=== PATIENT | male | born 1955 | race Caucasian/White ===

== ENCOUNTER 2020-02-13 23:36 | Emergency (ER) | payer OTHER, MEDICARE, SELFPAY ==
[2020-02-13 23:48] VITALS: BP 104/41; BP 130/70; PULSE 81; PULSE 88; RESP 22; TEMP 37.1; O2SAT 100; O2SAT 98; BMI 23.6
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
[2020-02-14] VITALS (7 sets, daily range): BP systolic 89–95; BP diastolic 42–60; PULSE 69–77; RESP 16; TEMP 36.6–37; O2SAT 97–100
[2020-02-14] MEDS: 0.9 % Sodium Chloride 1,000 ML 999 ML IV (00:30)
[2020-02-14 00:36] LABS: Basophils Percent Auto 0.5 % (0-2); Eosinophils Absolute Auto 0.1 X10*3/uL (0.0-0.4); Eosinophils Percent Auto 0.8 % (0-4); Hematocrit 34.6 % (42-52); Hemoglobin 11.6 g/dl (14.0-18.0); Imm Gran Abs Auto 0.02 X10*3/uL (0.00-0.03); Imm Gran Pct Auto 0.3 % (0.0-0.4); Lymphocytes Percent Auto 14.1 % (20-40); MANUAL DIFF FLAG NO; Mean Corpuscular HGB Conc 33.5 g/dl (31.0-36.0); Mean Corpuscular Hemoglobin 30.8 pg (27.0-33.0); Mean Corpuscular Volume 91.8 fL (80-98); Mean Platelet Volume 9.5 fL (9.4-12.4); Monocytes Absolute Auto 0.6 X10*3/uL (0.1-1.2); Monocytes Percent Auto 7.4 % (2-11); Neutrophils Absolute Auto 5.7 X10*3/uL (2.0-8.3); Neutrophils Percent Auto 76.9 % (45-73); Platelet Count 239 X10*3/uL (160-400); Red Blood Count 3.77 X10*6/uL (4.60-5.80); White Blood Count 7.4 X10*3/uL (4.8-10.8)
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
[2020-02-14 01:12] LABS: Alanine Aminotransferase 21 U/L (0-40); Albumin Level 4.1 g/dL (3.5-5.0); Alkaline Phosphatase 104 U/L (39-117); Anion Gap 13 (12-20); Aspartate Amino Transferase 27 U/L (5-37); Bilirubin Direct 0.2 mg/dL (0.0-0.5); Bilirubin Total 0.4 mg/dL (0.0-1.0); Blood Urea Nitrogen 26 mg/dL (9-16); Calcium 8.4 mg/dL (8.4-10.2); Carbon Dioxide 25 mmol/L (22-29); Chloride 104 mmol/L (96-108); Creatinine Clr Calc Pharmacy 64.5; Estimated Glomerular Filt Rate > 60; Glucose Random 108 mg/dL (60-115); Lipase 18 U/L (8-78); Magnesium 2.2 mg/dL (1.6-2.6); Potassium 4.4 mmol/l (3.3-5.1); Sodium 138 mmol/L (135-145); Total Protein 6.3 g/dL (6.5-8.0)
[2020-02-14 01:15] LABS: Troponin-I High Sensitivity 5.5 ng/L (<3.5-35.0)
--- NOTE | 2020-02-14 02:28 | PC.NURSE ---
Healthcare proxy and Stephy bradley, updated via phone for plan of case management and pt in am. please see previous note and paper/photographic documentation in chart for further information.
--- NOTE | 2020-02-14 03:03 | PC.NURSE ---
bruises and scratches as listed below : R upper arm :18cm x 8cm x<0.1cm left lumber:8.5cm x 4.5cm x<0.1cm left lateral lower le.2 cm x 8cm x<0.1cm left lateral thigh 10.7cm x 7.8cm x <0.1cm left posterior rib 12.2cm x 3cm x<0.1cm left lateral upper arm 20cm x 7cm x<0.1cm moisture wounds r buttock and thigh 33.4 cm x 30cm x <0.1 cm left buttock, thigh and sacrum 52.2 cm x 30 cm x<0.1cm scratches noted on r shoulder. all areas listed above are documented in photographic impaired skin documentation that is located in pt paper chart. pt gave verbal permission for photgraphs.
[2020-02-14 05:34] LABS: Glucose Urine UA NEG (NEG); Leukocyte Esterase Urine NEG (NEG); Nitrite Urine NEG (NEG); PH 6.5 (5.0-8.0); Urine Blood NEG (NEG); Urine Ketones 5 MG/DL (NEG); Urine Protein NEG (NEG-TRACE)
[2020-02-14 05:36] LABS: Appearance Urine CLEAR; Color Urine STRAW
--- NOTE | 2020-02-14 06:13 | PC.NURSE ---
Updated family member, Stephy, niece. Stephy provided the meds the pt is on at this time. Med rec updated. Pt awaiting for bed assignment.
--- NOTE | 2020-02-14 07:05 | PC.NURSE ---
RECEIVED REPORT FROM SHAYLA BALTAZAR
--- NOTE | 2020-02-14 07:26 | PC.NURSE ---
PT SET UP WITH BREAKFAST TRY, PT IS CURRENTLY EATING BREAKFAST
--- NOTE | 2020-02-14 08:10 | PC.NURSE ---
PT ATE 100% OF HIS BREAKFAST, BP OBTAINED MANUALLY LOW 91/50.
--- NOTE | 2020-02-14 10:23 | PC.NURSE ---
PT RESTING IN THE STRETCHER WATCHING TV, VS STABLE. PT INCONTINENT OF URIN, PT CLEANED UP AND BARRIER CREAM APPLIED TO COCCYX AREA, VERY RED AND IRROTED IN APPEARANCE
--- NOTE | 2020-02-14 13:12 | PC.NURSE ---
PHYSICAL THERAPY AT BEDSIDE
--- NOTE | 2020-02-14 14:13 | MHC.CM.ED ---
Patient is agreeable to a referral to [facility]; now placed. case management following.
--- NOTE | 2020-02-14 14:15 | PC.NURSE ---
DETECTIVES AT BEDSIDE SPEAKING TO PT
--- NOTE | 2020-02-14 14:33 | PC.NURSE ---
PT SET UP WITH LAILA GUERRERO
[2020-02-14 16:32] LABS: SARS COV2 PCR INHOUSE NEGATIVE (Negative)
--- NOTE | 2020-02-14 17:13 | MHC.CM.ED ---
Pt accepted at [facility]. COVID negative. Niece, Stephy, aware of transfer. Ambulance request sent. Continuing to follow for d/c needs.
--- NOTE | 2020-02-14 17:29 | PC.NURSE ---
report given to lashawn at [facility]
== END 2020-02-14 18:28 | disposition skilled nursing facility (03) ==
PROVIDERS: Nurse Practitioner Family; Physician Assistant; Emergency Provider Emergency Medicine
DX: R11.2 Nausea with vomiting, unspecified (principal); R53.1 Weakness
CPT/HCPCS: 36415; 71046; 80048; 80076; 81003; 83690; 83735; 84484; 85025; 87635; 96360; 97162; 99284; 99285

== ENCOUNTER 2020-02-15 11:40 | Emergency (ER) | payer OTHER, SELFPAY ==
[2020-02-15 11:48] VITALS: BP 112/60; BP 92/56; PULSE 67; PULSE 75; RESP 18; TEMP 36.9; O2SAT 100; O2SAT 98; BMI 23.1
--- NOTE | 2020-02-15 12:00 | PC.NURSE ---
PT SENT FROM SNF FOR AGRRESSION, PT CALM AND COOPERATIVE AT THIS TIME WITH STAFF. WAS DC FROM ED YESTERDAY. CM AWARE OF PATIENT RETURN.
--- NOTE | 2020-02-15 12:47 | PC.NURSE ---
fax and called to jaylan.
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
--- NOTE | 2020-02-15 12:57 | PC.NURSE ---
pt up and wandering from bed. sitter placed.
[2020-02-15 14:00] VITALS: BP 96/52; PULSE 65; O2SAT 100
--- NOTE | 2020-02-15 14:15 | MHC.CM.ED ---
PATIENT IS NOT ACCEPTED AT [facility]. REFERRAL PLACED TO [facility] TO ASK IF THEY CAN OFFER. MESSAGE LEFT FOR ADMISSIONS (CARI [phone] OPTION 5) TO CALL BACK THIS DISCOVERY GUIDE CASE MANAGEMENT FOLLOWING.
--- NOTE | 2020-02-15 14:24 | MHC.CARE ---
Spoke with Dia from Case Management and they will be following up with Gelacio's case since he does not meet [facility] admission. Spoke with Dr Daily and he will refer to Case Management
--- NOTE | 2020-02-15 14:39 | MHC.CM.ED ---
PATIENT IS GOING TO RETURN HOME WITH HIS NIECE TODAY. RN AWARE OF PLAN.
--- NOTE | 2020-02-15 15:28 | PC.NURSE ---
pt kirk coming to take patient home. dc instructions reviewed with sergei over the phone.
[2020-02-15 15:46] VITALS: BP 94/49; PULSE 70; RESP 16; TEMP 36.6; O2SAT 100
--- NOTE | 2020-02-15 15:47 | PC.NURSE ---
VIRIDIANA EMANUEL AWARE OF PATIENT LOW BLOOD PRESSURE.
--- NOTE | 2020-02-15 16:22 | MHC.CM.ED ---
Spoke with niece, Stephy, about discharging pt home to her. Spoke with niece regarding reasons why [facility] transferred pt back to ED, including banging his head on the wall, verbally and sexually suggestive and walking into other patient rooms. Stephy tells me this is normal behavior for him at home and they are used to dealing with him. Stephy is very willing to take her uncle back home. Will arrive about 3:45 to bead picker pt.
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
--- NOTE | 2020-02-15 16:42 | MHC.CM.ED ---
D/C cancelled. Adult services concerned about discharge to niece. Spoke with EHIDI Dobbins. Pt to remain in ED pending d/c placement. Will continue to follow for d/c planning
--- NOTE | 2020-02-15 16:45 | PC.NURSE ---
pt to stay in ED until can be placed by case management. changed back over into hospital attire.
[2020-02-15 19:31] VITALS: PULSE 66; RESP 14; O2SAT 98
[2020-02-15 19:56] VITALS: BP 104/53; PULSE 85; RESP 16; TEMP 36.6; O2SAT 100
[2020-02-15 21:53] VITALS: BP 96/58; PULSE 65; RESP 16; TEMP 36.6; O2SAT 99
[2020-02-16] VITALS (10 sets, daily range): BP systolic 94–113; BP diastolic 46–70; PULSE 54–78; RESP 14–18; TEMP 36.7; O2SAT 96–100
--- NOTE | 2020-02-16 09:06 | PC.NURSE ---
CALL PLACED TO PHARMACY FOR MEDS
[2020-02-16] MEDS: Finasteride 5 MG TABLET PO (09:59)
[2020-02-16] MEDS: Tamsulosin HCL 0.4 MG CAPSULE PO ×2 (09:59→20:56)
[2020-02-16] MEDS: carBAMazepine 200 MG TABLET 400 MG PO (09:59)
[2020-02-16] MEDS: levETIRAcetam 500 MG TABLET 1000 MG PO ×2 (09:59→20:57)
--- NOTE | 2020-02-16 12:30 | PC.NURSE ---
Diet ordered by PA for soft diet.
--- NOTE | 2020-02-16 13:11 | PC.NURSE ---
PT ATE 100% OF LUNCH AFTER BEING FED BY PCT. PT CALM AND COOPERATIVE. AWAITING PLACEMENT. PT LINEN CHANGED AND PT CLEANED UP.
--- NOTE | 2020-02-16 16:04 | MHC.CM.ED ---
i spoke c [facility] cno today , she gave me hospital state's attorney's contact info (jamil silva, ph: [phone]) c request to call regarding social / dc issues c this patient. call has been made - message left. cm to cont. to follow.
--- NOTE | 2020-02-16 17:44 | PC.NURSE ---
call placed to food services for dinner tray
--- NOTE | 2020-02-16 18:40 | PC.NURSE ---
PT ATE 100% OF DINNER
--- NOTE | 2020-02-16 19:10 | PC.NURSE ---
REPORT TAKEN FROM SINDHU BALTAZAR, FIRST CONTACT WITH PT. RESTING IN BED EYES CLOSED, SKIN PWD, RESPIRATIONS EVEN UNLABORED. PO AT BEDSIDE FOR SAFETY. PT REMAINS CASE MANAGEMENT HOLD WITH NO UPDATES FOR PLACMENT.
[2020-02-16] MEDS: carBAMazepine 200 MG TABLET 600 MG PO (20:56)
[2020-02-16] MEDS: Melatonin 3 MG TABLET PO (20:57)
--- NOTE | 2020-02-16 21:16 | PC.NURSE ---
PT MEDICATED PER JUN. VSS. SKIN PWD RESPIRATIONS EVEN UNLABORED.RETURNED TO BED, LIGHTS OFF.
--- NOTE | 2020-02-16 22:43 | PC.NURSE ---
PT RESTING IN BED NO CHANGE IN PHYSICAL ASSESSMENT.
[2020-02-17 02:00] VITALS: RESP 16
--- NOTE | 2020-02-17 02:17 | PC.NURSE ---
PT RESTING IN BED SKIN PWD RESPIRATIONS EVEN UNLABORED. NO DISTRESS NOTED. AWAITING CASE MANAGEMENT IN AM.
[2020-02-17 04:00] VITALS: RESP 16
[2020-02-17 08:18] VITALS: BP 107/62; PULSE 56; RESP 18; O2SAT 99
[2020-02-17] MEDS: Tamsulosin HCL 0.4 MG CAPSULE PO ×2 (08:56→21:19)
--- NOTE | 2020-02-17 08:56 | MHC.CM.ED ---
a second call was placed to [facility] jamil siu. message left, waiting for atty. to return call. cm to cont to follow. we are instructed not to dc patient until we get direction from the atty. pa is aware of this situation. cm to cont. to follow.
[2020-02-17] MEDS: levETIRAcetam 500 MG TABLET 1000 MG PO ×2 (09:00→21:18)
[2020-02-17] MEDS: carBAMazepine 200 MG TABLET 400 MG PO (09:02)
[2020-02-17] MEDS: Finasteride 5 MG TABLET PO (09:03)
--- NOTE | 2020-02-17 09:13 | PC.NURSE ---
pt med with his metamucil 3.4gm at 0913 today. unable to scan, med was scanned multiple times and pharmacy brought a pharmacy sticker which after being scanned states that the med was being given in a future date.
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
[2020-02-17 14:00] VITALS: PULSE 80; RESP 18
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
--- NOTE | 2020-02-17 20:16 | PC.NURSE ---
spoke with daughter Luciana phone # [phone]. She reports that pt had been living at his home at [address] [place] [address] in [place] for 70 years. Pt's family decided to sell family home on Jan 26 and he and his moved into an apartment. Pt's behavior had been fine before the move, pt left the apt overnight and broke into his prior residence. Family decided they needed more help, pt brought to [facility], but tried to leave several times. Pt then brought to [facility], only lasted 6 hours. pt became physically aggressive with stafff, trying to leave locked unit. Family would like him to return to [facility] if possible. Pt normally acts up around 2pm, per daughter, hx of . pt's other daughter Grant calms him her phone # is [phone]. pt was dx with dementia 5 years ago. has been on aricept. when he's more lucid on his medication over the past few days, he becomes angry-per daughter.
[2020-02-17] MEDS: carBAMazepine 200 MG TABLET 600 MG PO (21:19)
[2020-02-17] MEDS: Melatonin 3 MG TABLET PO (21:19)
[2020-02-18] VITALS (8 sets, daily range): BP systolic 98–113; BP diastolic 51–66; PULSE 60–88; RESP 14–18; TEMP 36.5–37; O2SAT 97–100
[2020-02-18] MEDS: Finasteride 5 MG TABLET PO (09:20)
[2020-02-18] MEDS: levETIRAcetam 500 MG TABLET 1000 MG PO ×2 (09:21→20:18)
[2020-02-18] MEDS: carBAMazepine 200 MG TABLET 400 MG PO (09:21)
[2020-02-18] MEDS: Tamsulosin HCL 0.4 MG CAPSULE PO ×2 (09:22→20:19)
--- NOTE | 2020-02-18 11:26 | CT_ITS ---
EXAMINATION: CT BRAIN, CT CERVICAL SPINE NONCONTRAST. CLINICAL INFORMATION: Status post fall with neck injury. COMPARISON: CT brain and CT cervical spine 08/01/2019 TECHNIQUE: 5 mm thin axial and reformatted 2 mm thin coronal and sagittal images of brain were obtained without contrast. Subsequently axial 3 mm thin and reformatted 2 mm thin sagittal and coronal images of cervical spine were obtained. DLP 1874 FINDINGS: Brain: There is no acute intra-axial, extra-axial bleed, masses or midline shift. There is no acute infarction in evolution. The lateral ventricles are enlarged but symmetrical. Curtis to white matter difference is maintained. Bone windows reveal no calvarial abnormality. There is no scalp soft tissue abnormality. Bilateral paranasal sinuses and mastoid air cells are well-aerated. Cervical spine: On sagittal reconstructed images there is normal cervical lordosis. The vertebral heights and alignment appears normal. There is loss of C3-C4, C4-C5, C5-C6 and C6-C7 disc heights with mild ventral and posterior cervical spondylosis. Mild degenerative superior spurring is seen at the C1-C2 disc level. The craniovertebral junction appears normal. There is no visible acute fracture, dislocation or subluxation. There is moderate narrowing of right C3-C4, bilateral C4-C5, C5-C6 and right C6-C7 neural foramina from uncovertebral hypertrophic changes. The prevertebral and paravertebral soft tissues are normal. The lung apices are clear. The thyroid lobes and visualized submandibular and parotid glands appear unremarkable. CT/CT cervical spine wo con IMPRESSION: No acute intracranial process seen. There is no acute fracture or dislocation cervical spine. There are degenerative disc changes and facet joint arthropathy as described above.
--- NOTE | 2020-02-18 11:26 | CT_ITS ---
EXAMINATION: CT ABDOMEN AND PELVIS WITHOUT CONTRAST CLINICAL INFORMATION: Status post fall. COMPARISON: None TECHNIQUE: Multidetector volumetric imaging was performed from the superior aspect of the liver through the pubic symphysis. Sagittal and coronal reformatted images were obtained on the technologist's workstation. This CT examination was performed using dose optimization techniques as appropriate, variously including the following: *Automated exposure control *Adjustment of mA and/or kV according to patient size (this includes techniques or standardized protocols for targeted exams where dose is matched to indication/reason for exam; i.e. extremities or head) *Use of iterative reconstruction technique DLP: 813 mGy-cm FINDINGS: LUNG BASES: There is minimal bibasilar dependent atelectasis. The heart size is normal. LIVER, GALLBLADDER, AND BILIARY TREE: The liver is normal in size, shape, and attenuation. No focal hepatic lesion or biliary ductal dilatation is present. The gallbladder is contracted. PANCREAS: Unremarkable. SPLEEN: Unremarkable. ADRENAL GLANDS: Unremarkable. KIDNEYS AND URETERS: The kidneys are normal in size, shape, and attenuation. No hydronephrosis, hydroureter, or calculi seen. No perinephric stranding. BLADDER: Unremarkable. GASTROINTESTINAL TRACT: There is a large amount of stool seen throughout the colon without any significant distention the small bowel loops are normal caliber. Appendix is not seen. The stomach is nondistended and appears unremarkable. No free air or free fluid seen. ABDOMINAL WALL: No significant hernia is appreciated. LYMPH NODES: Normal. VASCULAR: Unremarkable. PELVIC VISCERA: The prostate gland is normal size with central gland punctate calcifications. OSSEOUS STRUCTURES: There is no compression fracture. No lytic process seen. Mild ventral spondylosis seen in lower lumbar spine. There is acute anterior angulation of xiphoid. Significant constipation. CT/CT abdomen pelvis wo con IMPRESSION: No significant abnormality.
--- NOTE | 2020-02-18 15:43 | PC.NURSE ---
patient resting. no distress. awaiting placement
[2020-02-18] MEDS: carBAMazepine 200 MG TABLET 600 MG PO (20:19)
[2020-02-18] MEDS: Melatonin 3 MG TABLET PO (20:19)
[2020-02-19 03:36] VITALS: RESP 18
--- NOTE | 2020-02-19 08:26 | PC.NURSE ---
report taken from Reinaldo BALTAZAR. pt sleeping in bed. no distress. sitter able to view pt at all times. pt waiting placement.
[2020-02-19 08:32] VITALS: BP 115/76; PULSE 55; RESP 16; TEMP 36.7; O2SAT 100
[2020-02-19] MEDS: levETIRAcetam 500 MG TABLET 1000 MG PO ×2 (08:38→21:01)
[2020-02-19] MEDS: carBAMazepine 200 MG TABLET 400 MG PO (08:39)
[2020-02-19] MEDS: Tamsulosin HCL 0.4 MG CAPSULE PO ×2 (08:39→21:02)
[2020-02-19] MEDS: Finasteride 5 MG TABLET PO (08:51)
--- NOTE | 2020-02-19 08:53 | PC.NURSE ---
report taken from Reinaldo RN @ 0700. pt resting comfortably in stretcher. am meds given per orders. pt waiting breakfast. staff can view pt at all times to ensure safety of patient. pt calm and cooperative at this time.
[2020-02-19 18:33] VITALS: RESP 18
--- NOTE | 2020-02-19 18:52 | PC.NURSE ---
Report taken from Uma Ibanez. Patient is to see case management in the morning for snf placement. Patient has been medically cleared but fell yesterday. Patient has alarm on so if he gets up it will sound. He also has a tendency to wander per RN.
[2020-02-19 20:08] VITALS: BP 108/59; PULSE 66; RESP 15; O2SAT 96
[2020-02-19] MEDS: carBAMazepine 200 MG TABLET 600 MG PO (21:01)
[2020-02-19] MEDS: Melatonin 3 MG TABLET PO (21:02)
[2020-02-19] MEDS: LORazepam 1 MG TABLET PO (21:04)
[2020-02-19 21:58] VITALS: BP 92/54; PULSE 68; RESP 15; O2SAT 98
[2020-02-20] VITALS: RESP 15
[2020-02-20 02:00] VITALS: RESP 15
[2020-02-20 04:00] VITALS: RESP 15
[2020-02-20 06:00] VITALS: BP 90/47; PULSE 67; RESP 15; O2SAT 96
--- NOTE | 2020-02-20 07:07 | PC.NURSE ---
pt appears to be sleeping in bed, rr even unlabored. per recent notes, pt is under adult protective services investigation with presumptive conclusions of investigation to be made this week. pt was to be dc home w niece whom pt has lived w prior to recent snf placement. pt awaiting case mgmt this morning.
--- NOTE | 2020-02-20 07:42 | PC.NURSE ---
FABRICATOR FOAM RUBBER AND COPYHOLDER AWARE OF PT CURRENT SITTER STATUS AND FALL RISK R/T FALL OVER THE WEEKEND. BEDS EXITING ALARM ON ATT, CHAIR ALARM IN ROOM NEEDED. PT STILL APPEARS TO BE SLEEPING, RR EVEN UNLABORED. WCTAYE.
--- NOTE | 2020-02-20 09:51 | PC.NURSE ---
pt ate all of breakfast. awaiting part of morning meds from pharmacy. wcarely.
[2020-02-20] MEDS: levETIRAcetam 500 MG TABLET 1000 MG PO ×2 (10:03→21:32)
[2020-02-20] MEDS: carBAMazepine 200 MG TABLET 400 MG PO (10:03)
[2020-02-20] MEDS: Tamsulosin HCL 0.4 MG CAPSULE PO ×2 (10:03→21:32)
[2020-02-20] MEDS: Finasteride 5 MG TABLET PO (10:04)
--- NOTE | 2020-02-20 10:11 | PC.NURSE ---
pt took all morning meds one at a time, without issue. wctm.
--- NOTE | 2020-02-20 14:00 | MHC.CM.ED ---
Patient remains in ER. Spoke with Environmental Engineering Manager Seth Ibarra via telephone at [phone]. Per Environmental Engineering Manager Fred, Elder at risk investigation is still ongoing. Spoke with La at the [place]. Patient is administratively eligible for short term or family resource specialist care through the [facility]. Referral is being broadcasted in allscripts. Continue to monitor for d/c needs.
[2020-02-20 20:00] VITALS: BP 101/52; PULSE 63; RESP 16; O2SAT 100
[2020-02-20] MEDS: Melatonin 3 MG TABLET PO (21:32)
[2020-02-20] MEDS: carBAMazepine 200 MG TABLET 600 MG PO (21:33)
[2020-02-20 22:00] VITALS: BP 102/52; PULSE 64; RESP 16; O2SAT 99
[2020-02-21] VITALS (8 sets, daily range): BP systolic 96–126; BP diastolic 50–70; PULSE 63–83; RESP 16–18; TEMP 36.1–37.1; O2SAT 97–100
--- NOTE | 2020-02-21 03:42 | PC.NURSE ---
PT SLEEPING SITTER PRESENT, SKIN WARM AND DRY, NEEDS AT BEDSIDE.
--- NOTE | 2020-02-21 07:15 | PC.NURSE ---
patient ambulated to bathroom with assistance, unsteady gait. back to bed breakfast given. patient ate entire meal , was given 2 glasses of orange juice and additional custard.
--- NOTE | 2020-02-21 08:30 | PC.NURSE ---
PT IS A/O X 2 STATES THAT HE DOES NOT KNOW WHAT THE YR IS.
--- NOTE | 2020-02-21 09:58 | MHC.CM.ED ---
Addendum entered by Kira Willson 02/21/20 10:34: Reading Specialist Seth Ibarra made aware of progress. Elder at Risk investigation is still pending. Continue to monitor for d/c needs. Original Note: Patient remains in ER. Patient is a and eligible for short term and ad terminal makeup operator care under the [facility]. Placement has been difficult due to previous behaviors. Contacted the following facilities that have not responded in the Allscripts: [facility] is closed. Left a voicemail for Loretta at [facility]. Left a message for the liaison at [facility]. Spoke with Yaneth at [facility]. They are not contracted with the [facility]. However, [facility] is contracted with the [facility]. Referral made via allscripts. Continue to monitor for d/c needs.
--- NOTE | 2020-02-21 10:15 | PC.NURSE ---
personal care done. pt remains confused. calm and cooperative. bed alarm remains on. 04/27 sitter remains at bedside
[2020-02-21] MEDS: Tamsulosin HCL 0.4 MG CAPSULE PO ×2 (10:23→21:54)
[2020-02-21] MEDS: levETIRAcetam 500 MG TABLET 1000 MG PO ×2 (10:23→21:55)
[2020-02-21] MEDS: Finasteride 5 MG TABLET PO (10:24)
[2020-02-21] MEDS: carBAMazepine 200 MG TABLET 400 MG PO (10:24)
--- NOTE | 2020-02-21 11:49 | PC.NURSE ---
PATIENT INCONTINENT OF LARGE AMOUNT OF URINE. BED LINEN CHANGED PATIENT REMAINS CALM AND COOPERATIVE
--- NOTE | 2020-02-21 15:43 | PC.NURSE ---
Pt resting in bed, pleasant, denies complaints or needs, pt watching tv.Sitter at bedside.
--- NOTE | 2020-02-21 16:08 | MHC.CM.ED ---
Received telephone call from José Miguel Fay at [facility]. Placement options discussed. José Miguel recommended referrals to [facility], [facility], [facility], and [facility]. [facility] José Miguel can be reached at [phone], ext [phone]. Continue to monitor for d/c needs.
[2020-02-21] MEDS: Melatonin 3 MG TABLET PO (21:54)
[2020-02-21] MEDS: carBAMazepine 200 MG TABLET 600 MG PO (21:54)
[2020-02-22 01:03] VITALS: RESP 16
[2020-02-22 02:00] VITALS: BP 109/67; PULSE 88; RESP 14; O2SAT 98
--- NOTE | 2020-02-22 02:34 | PC.NURSE ---
Pt sleeping, easily awoken. awaiting placement by case management.
[2020-02-22 04:05] VITALS: BP 122/59; PULSE 62; RESP 15; TEMP 36.4
--- NOTE | 2020-02-22 08:25 | MHC.CM.ED ---
Patient remains in ER. Still waiting to hear if [facility], [facility], or [facility] will be able to offer a bed. Continue to monitor for d/c needs.
[2020-02-22] MEDS: carBAMazepine 200 MG TABLET 400 MG PO (09:00)
[2020-02-22] MEDS: levETIRAcetam 500 MG TABLET 1000 MG PO ×2 (09:01→22:05)
[2020-02-22] MEDS: Tamsulosin HCL 0.4 MG CAPSULE PO ×2 (09:01→22:05)
[2020-02-22] MEDS: Finasteride 5 MG TABLET PO (09:35)
--- NOTE | 2020-02-22 12:16 | MHC.CM.ED ---
Received notification, Karthik from [facility] was requesting update. T/w left a voicemail at [phone] Ext [phone] stating placement had not been found yet. Received telephone call from Marcelle at [facility]. She can be reached at [phone] ext [phone]. Marcelle feels it is in the best interest of Gelacio to go to short term rehab. She will reinterate this to patient's niece Stephy. Received telephone call from José Miguel Allen at the [facility]. He is [facility] Referrals made in Allscripts. Continue to monitor for d/c needs.
[2020-02-22 15:10] VITALS: BP 91/52; PULSE 67; RESP 16; TEMP 36.6; O2SAT 99
[2020-02-22 17:53] VITALS: BP 100/65; PULSE 62; RESP 18; TEMP 36.4; O2SAT 100
--- NOTE | 2020-02-22 20:32 | PC.NURSE ---
Patient awake and alert. Skin PWD, resp even and non labored. speaking in full, clear sentences. calm and cooperative. able to make needs known.
[2020-02-22 20:34] VITALS: BP 102/55; PULSE 73; RESP 18; TEMP 36.4; O2SAT 98
[2020-02-22] MEDS: carBAMazepine 200 MG TABLET 600 MG PO (22:05)
[2020-02-22] MEDS: Melatonin 3 MG TABLET PO (22:05)
--- NOTE | 2020-02-22 23:21 | PC.NURSE ---
report taken from theresa perez at this time. pt laying watching tv in hospital bed. pt in nad. sitter at bedside due to patient being high fall risk. nad noted
[2020-02-23] VITALS: RESP 18
--- NOTE | 2020-02-23 04:10 | PC.NURSE ---
pt incontinent of stool and urine, linen changed, reposition. nad noted.
[2020-02-23] MEDS: Tamsulosin HCL 0.4 MG CAPSULE PO ×2 (08:44→20:51)
[2020-02-23] MEDS: Finasteride 5 MG TABLET PO (08:44)
[2020-02-23] MEDS: carBAMazepine 200 MG TABLET 400 MG PO (08:45)
[2020-02-23] MEDS: levETIRAcetam 500 MG TABLET 1000 MG PO ×2 (08:45→20:51)
[2020-02-23 08:47] VITALS: BP 93/59; PULSE 67; RESP 15
--- NOTE | 2020-02-23 10:07 | MHC.CM.CNN ---
[facility] ER. [facility] Left message for Henrietta at [facility]. Also faxed clinical. However she will not be in the office until tomorrow and there is no one else covering referrals. Left a message with Mechanical Developer Provermike Ibarra at [phone], just to notify him that we are still looking for placement. Spoke with José Miguel Fay at the [facility] via telephone at [phone] ext [phone]. Made him aware of the above information. Continue to monitor for d/c needs.
--- NOTE | 2020-02-23 10:13 | MHC.CM.ED ---
While [facility], referral has been broadcasted with [address] patient[address] address to all facilities that are contracted with the [place]. Continue to monitor for d/c needs.
[2020-02-23 14:34] VITALS: BP 105/56; PULSE 69; RESP 14; TEMP 36.4; O2SAT 97
[2020-02-23 18:46] VITALS: BP 107/64; PULSE 74; RESP 18; TEMP 36.8; O2SAT 100
[2020-02-23 19:51] VITALS: BP 98/64; PULSE 73; RESP 17; TEMP 36.6; O2SAT 100
[2020-02-23] MEDS: carBAMazepine 200 MG TABLET 600 MG PO (20:50)
[2020-02-23] MEDS: Melatonin 3 MG TABLET PO (20:51)
[2020-02-23 21:47] VITALS: BP 102/52; PULSE 78; RESP 16; TEMP 36.6; O2SAT 100
[2020-02-24] VITALS (9 sets, daily range): BP systolic 94–108; BP diastolic 46–66; PULSE 58–68; RESP 16; TEMP 36.3–36.8; O2SAT 95–99
--- NOTE | 2020-02-24 00:04 | PC.NURSE ---
PATIENT HAD LARGE BOWEL MOVEMENT .
[2020-02-24] MEDS: levETIRAcetam 500 MG TABLET 1000 MG PO ×2 (09:53→22:41)
[2020-02-24] MEDS: carBAMazepine 200 MG TABLET 400 MG PO (09:53)
[2020-02-24] MEDS: Tamsulosin HCL 0.4 MG CAPSULE PO ×2 (09:54→22:41)
--- NOTE | 2020-02-24 10:17 | MHC.CM.ED ---
Patient remains in the ER. Spoke with Henrietta at [facility]. They are not able to offer a bed because they are a locked psych unit. Left a voicemail for [facility]. Left a voicemail at [facility]. Left a voicemail at [facility]. Continue to monitor for d/c needs.
[2020-02-24] MEDS: Finasteride 5 MG TABLET PO (11:45)
--- NOTE | 2020-02-24 16:09 | PC.NURSE ---
PATIENT WAS INCONT OF LARGE BOWEL MOVEMENT .
--- NOTE | 2020-02-24 22:14 | PC.NURSE ---
PATIENT WAS INCONTINENCE OF LARGE BOWEL MOVEMENT
[2020-02-24] MEDS: Melatonin 3 MG TABLET PO (22:41)
[2020-02-24] MEDS: carBAMazepine 200 MG TABLET 600 MG PO (22:41)
[2020-02-25] VITALS (9 sets, daily range): BP systolic 99–130; BP diastolic 45–67; PULSE 60–78; RESP 15–18; TEMP 36.3–37.2; O2SAT 96–100
[2020-02-25] MEDS: Tamsulosin HCL 0.4 MG CAPSULE PO ×2 (10:49→20:54)
[2020-02-25] MEDS: levETIRAcetam 500 MG TABLET 1000 MG PO ×2 (10:50→20:54)
[2020-02-25] MEDS: Finasteride 5 MG TABLET PO (10:50)
[2020-02-25] MEDS: carBAMazepine 200 MG TABLET 400 MG PO (10:50)
--- NOTE | 2020-02-25 18:14 | PC.NURSE ---
patient had bm. changed, cleaned. linens changed. patient now up eating dinner.
[2020-02-25] MEDS: Melatonin 3 MG TABLET PO (20:54)
[2020-02-25] MEDS: carBAMazepine 200 MG TABLET 600 MG PO (20:54)
--- NOTE | 2020-02-26 00:50 | PC.NURSE ---
VITAL SIGNS DEFERRED, PT SLEEPING
[2020-02-26 06:12] VITALS: BP 99/49; PULSE 62; RESP 16; TEMP 36.8; O2SAT 99
--- NOTE | 2020-02-26 06:46 | PC.NURSE ---
pt report taken from noah perez resting in bed att, rr even/unlabored. rr even/unlabored. 1:[address] for safety.
[2020-02-26] MEDS: Finasteride 5 MG TABLET PO (09:03)
[2020-02-26] MEDS: Tamsulosin HCL 0.4 MG CAPSULE PO ×2 (09:03→21:11)
[2020-02-26] MEDS: levETIRAcetam 500 MG TABLET 1000 MG PO ×2 (09:03→21:11)
[2020-02-26] MEDS: carBAMazepine 200 MG TABLET 400 MG PO (09:04)
--- NOTE | 2020-02-26 15:15 | PC.NURSE ---
pt continues to rest in bed, no attempts to get out of bed today. rr even/unlabored. 1:[address] for safety. andrey.
--- NOTE | 2020-02-26 16:24 | PC.NURSE ---
pt given fresh linen change advisor s/p urinary incontinence.
[2020-02-26 19:43] VITALS: BP 127/55; PULSE 82; RESP 16; TEMP 36.5; O2SAT 98
--- NOTE | 2020-02-26 20:00 | PC.NURSE ---
pt awake and alert, cooperative. pt allowed me to take vital signs.
[2020-02-26] MEDS: carBAMazepine 200 MG TABLET 600 MG PO (21:11)
[2020-02-26] MEDS: Melatonin 3 MG TABLET PO (21:11)
--- NOTE | 2020-02-27 06:33 | PC.NURSE ---
pt's gown and linen changed.
--- NOTE | 2020-02-27 08:43 | MHC.CM.ED ---
Patient remains in ER. Will reach out to 2 facilities that haven't responded yet: [facility] and [facility]. Spoke with José Miguel Fay via telephone at [phone] ext [phone]. José Miguel recommending referrals to [facility] in [facility] and [facility] Nunez in [place]. Referrals made via allscripts. Continue to monitor for d/c needs.
[2020-02-27] MEDS: carBAMazepine 200 MG TABLET 400 MG PO (09:22)
[2020-02-27] MEDS: Tamsulosin HCL 0.4 MG CAPSULE PO ×2 (09:22→20:25)
[2020-02-27] MEDS: levETIRAcetam 500 MG TABLET 1000 MG PO ×2 (09:23→20:25)
[2020-02-27 09:27] VITALS: BP 107/68; PULSE 67; RESP 14; O2SAT 100
[2020-02-27] MEDS: Finasteride 5 MG TABLET PO (09:50)
--- NOTE | 2020-02-27 11:57 | MHC.CM.ED ---
[facility] in [place] and [place] are not able to offer beds. Left a voicemail for Valorie at [place] and Martha at [facility]. Continue to monitor for d/c needs.
[2020-02-27 12:00] VITALS: BP 104/32; PULSE 68; RESP 18; TEMP 36.4; O2SAT 100
--- NOTE | 2020-02-27 12:01 | MHC.CM.ED ---
Referral has been expanded to [address] patient[address]. Continue to monitor for d/c needs.
--- NOTE | 2020-02-27 12:22 | PC.NURSE ---
patient alert to baseline, calm/compliant, patient currently watching tv, will continue to monitor.
--- NOTE | 2020-02-27 14:15 | PC.NURSE ---
patient alert to baseline, pt watching tv, total bed change performed, pt calm/compliant, will continue to monitor.
--- NOTE | 2020-02-27 16:10 | PC.NURSE ---
patient alert to baseline, watching tv, pt no c/o pain or discomfort, calm/compliant, will continue to monitor.
[2020-02-27 18:00] VITALS: BP 103/38; PULSE 68; RESP 18; TEMP 36.4; O2SAT 97
[2020-02-27] MEDS: carBAMazepine 200 MG TABLET 600 MG PO (20:25)
[2020-02-27] MEDS: Melatonin 3 MG TABLET PO (20:25)
--- NOTE | 2020-02-27 21:43 | PC.NURSE ---
patient alert to baseline, watching tv, patient calm/compliant, will continue to monitor.
--- NOTE | 2020-02-27 23:00 | PC.NURSE ---
PATIENT IS RESTING COMFORTABLY AT THIS TIME. CALL SANCHEZ WITHIN REACH. SITTER REMAINS AT BEDSIDE. GIOVANNY ANDUJAR RECEIVED NURSE TO NURSE REPORT FROM GIOVANNY HORAN. WILL CONTINUE TO MONITOR.
[2020-02-28 01:59] VITALS: BP 122/81; PULSE 70; RESP 16; TEMP 36.4; O2SAT 99
[2020-02-28] MEDS: Finasteride 5 MG TABLET PO (08:27)
[2020-02-28] MEDS: levETIRAcetam 500 MG TABLET 1000 MG PO ×2 (08:27→20:43)
[2020-02-28] MEDS: carBAMazepine 200 MG TABLET 400 MG PO (08:28)
[2020-02-28] MEDS: Tamsulosin HCL 0.4 MG CAPSULE PO ×2 (08:28→20:43)
[2020-02-28 08:30] VITALS: BP 109/59; PULSE 60; O2SAT 99
[2020-02-28 11:29] VITALS: BP 107/65; PULSE 69; RESP 18; TEMP 36.7; O2SAT 97
--- NOTE | 2020-02-28 11:48 | PC.NURSE ---
patient awake, alert to baseline, vitals stable, watching tv at this time, will continue to monitor.
--- NOTE | 2020-02-28 11:50 | MHC.CM.ED ---
Patient remains in ER. [facility] is not able to offer a bed. Spoke with Cris at [facility]. She has received the referral and will be reviewing it. Left voicemail for Marcelle at [facility], explaining a bed had not been found for patient yet. Spoke with patient's niece, Stephy via telephone at [phone]. Explained placement had not been found yet. She understands patient may have to go to [place]. Continue to monitor for d/c needs.
--- NOTE | 2020-02-28 15:30 | PC.NURSE ---
patient oob to recliner chair to watch tv.
--- NOTE | 2020-02-28 16:30 | PC.NURSE ---
patient awake/alert, answering questions, patient watching tv at this time, no c/o pain or discomfort noted, will continue to monitor.
[2020-02-28 18:00] VITALS: BP 126/56; PULSE 85; RESP 18; TEMP 36.6; O2SAT 99
[2020-02-28] MEDS: carBAMazepine 200 MG TABLET 600 MG PO (20:42)
[2020-02-28] MEDS: Melatonin 3 MG TABLET PO (20:42)
--- NOTE | 2020-02-28 20:59 | PC.NURSE ---
patient alert to baseline, watching tv, patient calm/compliant, took meds whole with water, patient was incontinent of urine/bed change performed, will continue to monitor
--- NOTE | 2020-02-28 22:43 | PC.NURSE ---
Patient currently sleeping, will continue to monitor.
[2020-02-28 23:35] VITALS: BP 110/60; PULSE 63; RESP 16; TEMP 36.4; O2SAT 98
[2020-02-29 06:00] VITALS: BP 97/56; PULSE 59; RESP 16; TEMP 36.4; O2SAT 99
--- NOTE | 2020-02-29 07:03 | PC.NURSE ---
REPORT TAKEN FROM ALISSA BALTAZAR. PT AWAKE AND ALERT SITTING IN BED, PLEASANT WITH STAFF. BREAKFAST GIVEN TO PATIENT. PATIENT AWAITING PLACEMENT.
[2020-02-29 09:10] VITALS: BP 131/67; PULSE 72; RESP 16; TEMP 36.4; O2SAT 95
[2020-02-29] MEDS: Tamsulosin HCL 0.4 MG CAPSULE PO ×2 (09:12→20:14)
[2020-02-29] MEDS: levETIRAcetam 500 MG TABLET 1000 MG PO ×2 (09:12→20:14)
[2020-02-29] MEDS: carBAMazepine 200 MG TABLET 400 MG PO (09:13)
[2020-02-29] MEDS: Finasteride 5 MG TABLET PO (10:05)
--- NOTE | 2020-02-29 13:05 | MHC.CM.ED ---
Patient remains in ER. [facility] is not contracted with [place]. [facility] in [place] is reviewing clinical to see if they can offer a bed. Continue to monitor for d/c needs.
--- NOTE | 2020-02-29 14:36 | MHC.CM.ED ---
[facility] is willing to offer a bed, but needs authorization from the [facility]. José Migueldaniel Fay contacted. He will reach out to the facility. Spoke with patient's niece, Stephy via telephone. Stephy verbalizes understanding and is agreeable to discharge plan. Continue to monitor for d/c needs.
[2020-02-29 16:11] VITALS: BP 113/60; PULSE 68; RESP 16; TEMP 36.7; O2SAT 97
[2020-02-29 18:14] VITALS: RESP 16
--- NOTE | 2020-02-29 19:37 | PC.NURSE ---
REPORT TAKEN FROM AMRIK BALTAZAR. FIRST CONTACT WITH PT. RESTING IN BED EYES CLOSED,SKIN PWD RESPIRATIONS EVEN UNLABORED. CASE MANAGEMENT BED SEARCH CONTINUES.
[2020-02-29] MEDS: carBAMazepine 200 MG TABLET 600 MG PO (20:14)
[2020-02-29] MEDS: Melatonin 3 MG TABLET PO (20:14)
--- NOTE | 2020-02-29 20:18 | PC.NURSE ---
PT MEDICATED WITH PM MEDS PER JUN. LIGHTS DIMMED AND BACK TO SLEEP.
--- NOTE | 2020-02-29 21:37 | PC.NURSE ---
PT RESTING IN BED QUIETLY, NO DISTRESS NOTED.
--- NOTE | 2020-02-29 23:20 | PC.NURSE ---
REPORT GIVEN TO ARABELLA BALTAZAR.
[2020-03-01 08:00] VITALS: BP 110/56; RESP 20; TEMP 36.1; O2SAT 99
[2020-03-01] MEDS: carBAMazepine 200 MG TABLET 400 MG PO (08:31)
[2020-03-01] MEDS: levETIRAcetam 500 MG TABLET 1000 MG PO (08:32)
[2020-03-01] MEDS: Tamsulosin HCL 0.4 MG CAPSULE PO (08:32)
--- NOTE | 2020-03-01 08:50 | PC.NURSE ---
PT CHANGED AND REPOSITIONED, PT FELL BACK TO SLEEP BREAKFAST AT BEDSIDE. WAITING FOR BEDPLACEMENT
[2020-03-01] MEDS: Finasteride 5 MG TABLET PO (09:40)
--- NOTE | 2020-03-01 10:41 | MHC.CM.ED ---
Received telephone call from José Miguel Fay of the [facility]. He does not feel it is ethical to send this patient [place] away. T/W explained 89 referrals had been sent to all facilities within [address] that are contracted with the [place]. This has been the only facility that has accepted him. José Miguel states he will be calling [facility], [place] and [facility] to re-review patient. He also asked t/w [facility]. He also asked for referrals to [facility], [facility] and [facility]. Referral made via [employer]. T/w also attempted to reinterate that patient has been in the ER for 340 hours. Continue to monitor for d/c needs.
--- NOTE | 2020-03-01 10:57 | MHC.CM.ED ---
Spoke with La at the [facility]. She is suggesting referral to [facility]. Referral made via allscripts. Continue to monitor for d/c needs.
[2020-03-01 12:00] VITALS: BP 137/94; RESP 18; TEMP 36.9; O2SAT 100
--- NOTE | 2020-03-01 12:48 | MHC.CM.ED ---
[facility], [facility] and [facility] are not able to offer a bed. Left a voicemail for Verena at [facility]. Waiting to hear from [facility]. Continue to monitor for d/c needs.
--- NOTE | 2020-03-01 14:20 | MHC.CM.ED ---
Received telephone call from cici Meyers at [facility]. Clinical sent at his request. He will review and possibly do a site visit with patient tomorrow. Received telephone call from Jasmin at [facility]. Clinical updates faxed at her request. Continue to monitor for d/c needs.
[2020-03-01 19:46] VITALS: BP 123/63; PULSE 64; RESP 16; TEMP 36.9; O2SAT 97
[2020-03-02] VITALS: BP 122/70; PULSE 58; RESP 18; TEMP 37; O2SAT 97
[2020-03-02] MEDS: Melatonin 3 MG TABLET PO (01:07)
[2020-03-02] MEDS: levETIRAcetam 500 MG TABLET 1000 MG PO ×2 (01:07→10:07)
[2020-03-02] MEDS: carBAMazepine 200 MG TABLET 600 MG PO (01:08)
[2020-03-02] MEDS: Tamsulosin HCL 0.4 MG CAPSULE PO ×2 (01:08→10:07)
--- NOTE | 2020-03-02 01:20 | PC.NURSE ---
PT MEDICATIONS GIVEN LATE DUE TO PT SLEEPING AND NOT RECEPTIVE TO TAKING HIS MEDS WHEN ASKED.
--- NOTE | 2020-03-02 02:06 | PC.NURSE ---
pt resting no complaints, pt has warm blankets and is calm and cooperative with staff. needs met at bedside. evening care given. pt repositions self. skin in tack
--- NOTE | 2020-03-02 02:29 | PC.NURSE ---
pt barrera alarm has gone off 3x for pt trying to get oob to reach things on his bedside table. needs met, bed alarms reset. warm blanket and po fluids given.
--- NOTE | 2020-03-02 03:48 | PC.NURSE ---
pt awake removing blankets and needs frequent redirection to keep his gown and blanket covering him. pt is pleasantly forgetfull.
--- NOTE | 2020-03-02 05:57 | PC.NURSE ---
pt still getting out of bed, pt placed back in bed, morining care given, pt given a magazine to look at. pt needs frequent reorientation, bed alarms set and pt still got oob to try to ambulated naked with gown at his ankles.
--- NOTE | 2020-03-02 07:36 | PC.NURSE ---
Pt sleeping in room, respirations even/unlabored bilaterally. no sign of distress noted. will continue to monitor. md aware.
[2020-03-02 08:00] VITALS: RESP 16
--- NOTE | 2020-03-02 09:16 | MHC.CM.ED ---
Patient remains in ER. [facility] He will be by the ER today to complete an on site visit with patient. However, he will not be able to accept the patient before Thursday. Doris aware. Continue to monitor for d/c needs.
--- NOTE | 2020-03-02 09:58 | MHC.CM.ED ---
Received telephone call from Henrietta of [facility]. She has requested clinical updates be faxed to [phone]. Clinical updates faxed as requested. Received telephone call from José Miguel Fay of the [place]. He [facility] t[facility]w [facility]. Left voicemail for Caroline at [place]. Continue to monitor for d/c needs.
[2020-03-02] MEDS: carBAMazepine 200 MG TABLET 400 MG PO (10:07)
[2020-03-02] MEDS: Finasteride 5 MG TABLET PO (10:08)
[2020-03-02 12:00] VITALS: RESP 16
--- NOTE | 2020-03-02 12:07 | PC.NURSE ---
PT MOVED FROM BED TO CHAIR TO EAT.
--- NOTE | 2020-03-02 14:33 | MHC.CM.ED ---
Received notification from Candelario that the [facility] will authorize [facility] in [place]. Barb from [facility] has submitted for [facility] in [place]. Patient is accepted. Per José Miguel Fay at the [facility], [facility] booked for 3pm. Med nec with chart. Attempted to reach patient's niece/HCP Stephy via telephone. Left voicemail giving facility name and telephone number. Dr Allison and Noé BALTAZAR aware. Continue to monitor for d/c needs.
--- NOTE | 2021-07-09 10:12 | MHC.HEMONCSW ---
LATE ENTRY.....PT HAS BEEN IN A DEMENTIA UNIT THRU THE [facility] IN [place] SINCE 2019. AT THAT TIME HIS MOTHER AND NIECE WAS UNABLE TO CARE FOR HIM.
== END 2020-03-02 16:07 ==
PROVIDERS: Emergency Provider Emergency Medicine
DX: F01.51 Vascular dementia, unspecified severity, with behavioral disturbance (principal); F02.81 Dementia in other diseases classified elsewhere, unspecified severity, with behavioral disturbance; M54.2 Cervicalgia; R10.9 Unspecified abdominal pain; C83.30 Diffuse large B-cell lymphoma, unspecified site; Z87.820 Personal history of traumatic brain injury; Z79.899 Other long term (current) drug therapy
CPT/HCPCS: 70450; 72125; 74176; 99284; 99285